=== PATIENT | male | born 1970 | race Caucasian/White ===

== ENCOUNTER 2021-11-21 10:02 | Emergency (ER) | payer OTHER ==
[2021-11-21 12:22] VITALS: BP 160/83; PULSE 74; TEMP 97.8; BMI 36.9
== END 2021-11-21 16:40 | disposition home or self-care (01) ==
LOC: JER 10:02
DX: R05.1 Acute cough (principal); R06.02 Shortness of breath; R51.9 Headache, unspecified
CPT/HCPCS: 0241U-QW; 71046-TC-FY; 99284-25

== ENCOUNTER 2022-05-14 10:53 | Inpatient (IN) | payer OTHER ==
[2022-05-14] MEDS ORDERED: morphine CARPU-JECT 4 MG/1 ML DISP.SYRIN IVPUSH ONE (15:18)
[2022-05-14] MEDS ORDERED: HYDROmorphone HCL CARPU-JECT 2 MG/1 ML DISP.SYRIN IVPUSH ONE ×2 (15:22→20:18)
[2022-05-14] MEDS ORDERED: HYDROmorphone HCl 2 MG/ML VIAL ONE ×2 (16:01→20:43)
[2022-05-14] MEDS ORDERED: ACETAMINOPHEN 1000 MG/100 ML BAG IVPB ONE (16:27)
[2022-05-14] MEDS ORDERED: ACETAMINOPHEN INJECTION 100 ML IVPB ONE (17:11)
[2022-05-14 17:30] LABS: BASO % 0.2 % (0-2.0); EOS % 0.6 % (0-4.5); HEMATOCRIT 45.4 % (35.4-49); HEMOGLOBIN 14.8 GM/dL (11.7-16.9); LYMPH % 10.3 % (8-40); MCH 26.3 pg (25.7-33.7); MCHC 32.6 g/dl (32.0-35.9); MEAN CELL VOLUME 80.8 fl (80-96); MEAN PLT VOLUME 8.6 fl (7.5-11.1); MONO % 8.3 % (3.8-10.2); NEUT % 80.6 % (42.8-82.8); PLATELET COUNT 209 10^3/uL (134-434); RBC 5.62 M/mm3 (4.00-5.60); RDW 14.3 % (11.9-15.9); WHITE BLOOD COUNT 8.7 K/mm3 (4.0-10.0)
[2022-05-14 17:41] LABS: INR 1.28 (0.83-1.09); PROTHROMBIN TIME (PATIENT) 14.8 SEC (9.7-13.0)
[2022-05-14 17:49] LABS: CALCIUM 9.2 mg/dL (8.5-10.1)
[2022-05-14 17:50] LABS: ALBUMIN 3.5 g/dl (3.4-5.0); BLOOD UREA NITROGEN 7.4 mg/dL (7-18)
[2022-05-14 17:52] LABS: CREATININE 0.7 mg/dL (0.55-1.3)
[2022-05-14 17:54] LABS: BILIRUBIN,TOTAL 0.8 mg/dL (0.2-1); TOT PROT 7.1 g/dl (6.4-8.2)
[2022-05-14] MEDS ORDERED: PIPERACILLIN/TAZOB 4.5 GM 4.5 GM in DEXTROSE 5%-WATER 100 ML IVPB ONE (20:22)
[2022-05-14] MEDS ORDERED: PIPERACILLIN/TAZOB 4.5 GM 4.5 GM/100 ML BAG IVPB ONE (20:44)
[2022-05-14] MEDS ORDERED: DOCUSATE SODIUM 100 MG CAPSULE (FP) PO PRN (21:03)
[2022-05-15] MEDS: INSULIN SLIDING SCALE (NOVOLOG) 1 VIAL SQ SCH ×5 (03:26→21:57)
[2022-05-15] MEDS ORDERED: ACETAMINOPHEN 1000 MG/100 ML BAG IVPB PRN (07:46)
[2022-05-15] MEDS ORDERED: CYCLOBENZAPRINE HCL 5 MG TABLET PO PRN (08:10)
[2022-05-15] MEDS: HYDROmorphone HCl 2 MG/ML VIAL IVPUSH PRN ×3 (08:14→17:45)
[2022-05-15] MEDS: PIPERACILLIN/TAZOB 3.375 GM 3.375 GM in DEXTROSE 5%-WATER - 50 ML IVPB SCH ×4 (08:14→21:36)
[2022-05-15 08:17] LABS: BASO % 0.4 % (0-2.0); EOS % 0.3 % (0-4.5); HEMATOCRIT 43.6 % (35.4-49); HEMOGLOBIN 14.3 GM/dL (11.7-16.9); LYMPH % 8.5 % (8-40); MCH 26.4 pg (25.7-33.7); MCHC 32.9 g/dl (32.0-35.9); MEAN CELL VOLUME 80.3 fl (80-96); MEAN PLT VOLUME 9.1 fl (7.5-11.1); MONO % 10.8 % (3.8-10.2); PLATELET COUNT 236 10^3/uL (134-434); RBC 5.43 M/mm3 (4.00-5.60); RDW 14.2 % (11.9-15.9)
[2022-05-15] MEDS ORDERED: PIPERACILLIN/TAZOB 3.375 GM 3.375 GM/50 ML BAG IVPB ONE ×3 (08:17→21:21)
[2022-05-15] MEDS ORDERED: HYDROmorphone HCl 2 MG/ML VIAL ONE ×2 (08:17→17:46)
[2022-05-15 08:29] LABS: CALCIUM 9.1 mg/dL (8.5-10.1)
[2022-05-15 08:30] LABS: BLOOD UREA NITROGEN 10.5 mg/dL (7-18); MAGNESIUM 1.9 mg/dL (1.8-2.4)
[2022-05-15] MEDS ORDERED: VALSARTAN 80 MG TABLET ONE (08:30)
[2022-05-15 08:34] LABS: CREATININE 0.9 mg/dL (0.55-1.3); PHOSPHOROUS 2.4 mg/dL (2.5-4.9)
[2022-05-15] MEDS: VALSARTAN 80 MG TABLET PO SCH (09:02)
[2022-05-15] MEDS ORDERED: ACETAMINOPHEN 325 MG TABLET (FP) PO PRN (13:50)
[2022-05-15] MEDS ORDERED: INSULIN (NOVOLOG) ASPART 100 UNITS/ML 10ML VIAL ONE (21:22)
[2022-05-15] MEDS ORDERED: ATORVASTATIN CA 20 MG TABLET (FP) ONE (21:22)
[2022-05-15] MEDS ORDERED: ACETAMINOPHEN INJECTION 100 ML IVPB ONE (21:31)
[2022-05-15] MEDS: ATORVASTATIN CA 20 MG TABLET (FP) PO SCH (21:59)
[2022-05-16] MEDS: PIPERACILLIN/TAZOB 3.375 GM 3.375 GM in DEXTROSE 5%-WATER - 50 ML IVPB SCH ×4 (05:24→21:19)
[2022-05-16] MEDS ORDERED: PIPERACILLIN/TAZOB 3.375 GM 3.375 GM/50 ML BAG IVPB ONE ×3 (05:27→21:04)
[2022-05-16] MEDS ORDERED: ACETAMINOPHEN 325 MG TABLET (FP) ONE ×3 (06:54→16:48)
[2022-05-16 08:46] LABS: HEMATOCRIT 40.1 % (35.4-49); HEMOGLOBIN 13.1 GM/dL (11.7-16.9); MCH 26.4 pg (25.7-33.7); MCHC 32.7 g/dl (32.0-35.9); MEAN CELL VOLUME 80.6 fl (80-96); MEAN PLT VOLUME 8.5 fl (7.5-11.1); PLATELET COUNT 212 10^3/uL (134-434); RBC 4.98 M/mm3 (4.00-5.60); RDW 14.2 % (11.9-15.9); WHITE BLOOD COUNT 8.7 K/mm3 (4.0-10.0)
[2022-05-16 09:07] LABS: ALBUMIN 2.8 g/dl (3.4-5.0); BLOOD UREA NITROGEN 13.1 mg/dL (7-18); CALCIUM 8.5 mg/dL (8.5-10.1)
[2022-05-16 09:10] LABS: CREATININE 0.9 mg/dL (0.55-1.3)
[2022-05-16 09:12] LABS: BILIRUBIN,TOTAL 0.7 mg/dL (0.2-1); TOT PROT 6.4 g/dl (6.4-8.2)
[2022-05-16] MEDS: INSULIN SLIDING SCALE (NOVOLOG) 1 VIAL SQ SCH ×4 (10:15→22:11)
[2022-05-16] MEDS ORDERED: VALSARTAN 80 MG TABLET ONE (10:16)
[2022-05-16] MEDS: VALSARTAN 80 MG TABLET PO SCH (10:26)
[2022-05-16] MEDS ORDERED: BACLOFEN 10 MG TABLET (FP) ONE (10:29)
[2022-05-16] MEDS ORDERED: HYDROmorphone HCl 2 MG/ML VIAL ONE ×3 (12:51→21:03)
[2022-05-16] MEDS: HYDROmorphone HCl 2 MG/ML VIAL IVPUSH PRN ×3 (12:55→21:19)
[2022-05-16 17:24] LABS: URINE APPEARANCE CLEAR; URINE BILIRUBIN NEGATIVE (NEGATIVE); URINE COLOR YELLOW; URINE GLUCOSE (UA) 3+ (NEGATIVE); URINE KETONE TRACE (NEGATIVE); URINE LEUK ESTERASE NEGATIVE (NEGATIVE); URINE NITRITE NEGATIVE (NEGATIVE); URINE PROTEIN TRACE (NEGATIVE)
[2022-05-16] MEDS ORDERED: ATORVASTATIN CA 20 MG TABLET (FP) ONE (22:06)
[2022-05-16] MEDS: ATORVASTATIN CA 20 MG TABLET (FP) PO SCH (22:11)
[2022-05-17] MEDS: PIPERACILLIN/TAZOB 3.375 GM 3.375 GM in DEXTROSE 5%-WATER - 50 ML IVPB SCH ×4 (02:08→22:53)
[2022-05-17] MEDS: HYDROmorphone HCl 2 MG/ML VIAL IVPUSH PRN ×5 (02:09→21:58)
[2022-05-17 05:59] VITALS: BMI 37.0
[2022-05-17] MEDS: INSULIN SLIDING SCALE (NOVOLOG) 1 VIAL SQ SCH ×4 (07:20→23:32)
[2022-05-17] MEDS: VALSARTAN 80 MG TABLET PO SCH (10:00)
[2022-05-17] MEDS: SODIUM CHLORIDE 1,000 ML IV SCH (10:50)
[2022-05-17] MEDS ORDERED: FLU VACC QS2022-23(6MOS UP)/PF 60 MCG/0.5 ML SYRINGE IM ONE (15:00)
[2022-05-17] MEDS: ATORVASTATIN CA 20 MG TABLET (FP) PO SCH (23:50)
[2022-05-18] MEDS: SODIUM CHLORIDE 1,000 ML IV SCH ×2 (02:09→11:32)
[2022-05-18] MEDS: PIPERACILLIN/TAZOB 3.375 GM 3.375 GM in DEXTROSE 5%-WATER - 50 ML IVPB SCH ×4 (02:09→22:32)
[2022-05-18] MEDS: HYDROmorphone HCl 2 MG/ML VIAL IVPB PRN ×5 (03:14→20:57)
[2022-05-18] MEDS: INSULIN (LEVEMIR) 100 UNITS/ML UNITS SQ SCH (06:48)
[2022-05-18] MEDS: INSULIN SLIDING SCALE (NOVOLOG) 1 VIAL SQ SCH ×4 (06:49→22:35)
[2022-05-18] MEDS ORDERED: INSULIN SLIDING SCALE (NOVOLOG) 1 VIAL SQ SCH (07:00)
[2022-05-18] MEDS: VALSARTAN 80 MG TABLET PO SCH (09:51)
[2022-05-18 10:36] LABS: CALCIUM 8.5 mg/dL (8.5-10.1)
[2022-05-18 10:37] LABS: ALBUMIN 2.6 g/dl (3.4-5.0); BLOOD UREA NITROGEN 9.5 mg/dL (7-18)
[2022-05-18 10:40] LABS: CREATININE 0.7 mg/dL (0.55-1.3)
[2022-05-18 10:41] LABS: BILIRUBIN,TOTAL 0.5 mg/dL (0.2-1)
[2022-05-18] MEDS ORDERED: INSULIN (NOVOLOG) ASPART 100 UNITS/ML 10ML VIAL ONE (10:59)
[2022-05-18] MEDS ORDERED: ONDANSETRON *ODT* 4 MG TABLET SL PRN (11:16)
[2022-05-18] MEDS: ATORVASTATIN CA 20 MG TABLET (FP) PO SCH (22:32)
[2022-05-18] MEDS: oxyCODONE HCL 20 MG SUSTAINED ACTING TABLET PO SCH (22:32)
[2022-05-19] MEDS: PIPERACILLIN/TAZOB 3.375 GM 3.375 GM in DEXTROSE 5%-WATER - 50 ML IVPB SCH ×4 (02:54→22:02)
[2022-05-19] MEDS: SODIUM CHLORIDE 1,000 ML IV SCH ×3 (06:06→21:59)
[2022-05-19] MEDS: INSULIN (LEVEMIR) 100 UNITS/ML UNITS SQ SCH (06:07)
[2022-05-19] MEDS: INSULIN SLIDING SCALE (NOVOLOG) 1 VIAL SQ SCH ×4 (06:07→22:02)
[2022-05-19] MEDS: oxyCODONE HCL 20 MG SUSTAINED ACTING TABLET PO SCH ×2 (09:00→22:01)
[2022-05-19] MEDS: VALSARTAN 80 MG TABLET PO SCH (09:01)
[2022-05-19] MEDS: CHOLECALCIFEROL (VIT D3) 1,000 UNIT (25 MCG) TABLET PO SCH (09:19)
[2022-05-19] MEDS: SERTRALINE HCL 50 MG TABLET (FP) PO SCH (09:19)
[2022-05-19 09:54] LABS: HEMATOCRIT 36.8 % (35.4-49); HEMOGLOBIN 12.3 GM/dL (11.7-16.9); MCH 26.7 pg (25.7-33.7); MCHC 33.5 g/dl (32.0-35.9); MEAN CELL VOLUME 79.7 fl (80-96); MEAN PLT VOLUME 7.8 fl (7.5-11.1); PLATELET COUNT 231 10^3/uL (134-434); RBC 4.62 M/mm3 (4.00-5.60); RDW 14.3 % (11.9-15.9); WHITE BLOOD COUNT 7.1 K/mm3 (4.0-10.0)
[2022-05-19] MEDS ORDERED: POLYETHYLENE GLYCOL (HEALTHYLAX) 3350 17 GM PACKET PO SCH (10:00)
[2022-05-19 10:17] LABS: CALCIUM 8.5 mg/dL (8.5-10.1)
[2022-05-19 10:18] LABS: ALBUMIN 2.4 g/dl (3.4-5.0); MAGNESIUM 2.2 mg/dL (1.8-2.4)
[2022-05-19 10:21] LABS: CREATININE 0.6 mg/dL (0.55-1.3)
[2022-05-19 10:23] LABS: BILIRUBIN,TOTAL 0.4 mg/dL (0.2-1); TOT PROT 6.1 g/dl (6.4-8.2)
[2022-05-19] MEDS: HYDROmorphone HCl 2 MG/ML VIAL IVPB PRN ×3 (11:58→22:00)
[2022-05-19] MEDS ORDERED: PHYTONADIONE 10 MG/1 ML AMP IVPB ONE (13:30)
[2022-05-19] MEDS: ATORVASTATIN CA 20 MG TABLET (FP) PO SCH (22:02)
[2022-05-20] MEDS: PIPERACILLIN/TAZOB 3.375 GM 3.375 GM in DEXTROSE 5%-WATER - 50 ML IVPB SCH ×4 (02:56→21:52)
[2022-05-20] MEDS: HYDROmorphone HCl 2 MG/ML VIAL IVPB PRN ×3 (06:32→21:51)
[2022-05-20] MEDS: INSULIN SLIDING SCALE (NOVOLOG) 1 VIAL SQ SCH ×4 (06:33→21:59)
[2022-05-20] MEDS: INSULIN (LEVEMIR) 100 UNITS/ML UNITS SQ SCH ×2 (06:33→21:59)
[2022-05-20 09:26] LABS: BASO % 0.4 % (0-2.0); EOS % 1.7 % (0-4.5); HEMATOCRIT 35.7 % (35.4-49); HEMOGLOBIN 11.8 GM/dL (11.7-16.9); LYMPH % 12.9 % (8-40); MCH 26.6 pg (25.7-33.7); MCHC 33.1 g/dl (32.0-35.9); MEAN CELL VOLUME 80.2 fl (80-96); MEAN PLT VOLUME 7.8 fl (7.5-11.1); MONO % 11.1 % (3.8-10.2); NEUT % 73.9 % (42.8-82.8); PLATELET COUNT 239 10^3/uL (134-434); RBC 4.45 M/mm3 (4.00-5.60); RETICULOCYTES 1.54 % (0.5-1.5); WHITE BLOOD COUNT 6.4 K/mm3 (4.0-10.0)
[2022-05-20 09:32] LABS: INR 1.28 (0.83-1.09); PROTHROMBIN TIME (PATIENT) 14.8 SEC (9.7-13.0)
[2022-05-20 09:41] LABS: CALCIUM 8.5 mg/dL (8.5-10.1)
[2022-05-20 09:43] LABS: CREATININE 0.7 mg/dL (0.55-1.3)
[2022-05-20] MEDS: oxyCODONE HCL 20 MG SUSTAINED ACTING TABLET PO SCH ×2 (10:15→21:50)
[2022-05-20] MEDS: SERTRALINE HCL 50 MG TABLET (FP) PO SCH (10:15)
[2022-05-20] MEDS: CHOLECALCIFEROL (VIT D3) 1,000 UNIT (25 MCG) TABLET PO SCH (10:15)
[2022-05-20] MEDS: VALSARTAN 80 MG TABLET PO SCH (10:15)
[2022-05-20] MEDS: PANTOPRAZOLE 40 MG TABLET PO SCH (10:15)
[2022-05-20] MEDS: POLYETHYLENE GLYCOL (HEALTHYLAX) 3350 17 GM PACKET PO SCH ×2 (10:18→21:52)
[2022-05-20] MEDS: SODIUM CHLORIDE 1,000 ML IV SCH (11:51)
[2022-05-20] MEDS ORDERED: IRON SUCROSE INJECTION 200 MG in SODIUM CHLORIDE 90 ML IVPB ONE (19:00)
[2022-05-20 19:22] LABS: INR 1.26 (0.83-1.09); PROTHROMBIN TIME (PATIENT) 14.5 SEC (9.7-13.0)
[2022-05-20] MEDS ORDERED: INSULIN (NOVOLOG) ASPART 100 UNITS/ML 10ML VIAL ONE (21:47)
[2022-05-20] MEDS: ATORVASTATIN CA 20 MG TABLET (FP) PO SCH (21:50)
[2022-05-21] MEDS: PIPERACILLIN/TAZOB 3.375 GM 3.375 GM in DEXTROSE 5%-WATER - 50 ML IVPB SCH ×4 (02:53→22:43)
[2022-05-21] MEDS: INSULIN SLIDING SCALE (NOVOLOG) 1 VIAL SQ SCH ×4 (06:08→22:59)
[2022-05-21] MEDS: HYDROmorphone HCl 2 MG/ML VIAL IVPB PRN ×3 (06:08→18:55)
[2022-05-21] MEDS: INSULIN (LEVEMIR) 100 UNITS/ML UNITS SQ SCH ×2 (06:09→22:59)
[2022-05-21 09:48] LABS: BASO % 0.6 % (0-2.0); EOS % 1.9 % (0-4.5); HEMATOCRIT 35.5 % (35.4-49); HEMOGLOBIN 11.9 GM/dL (11.7-16.9); LYMPH % 14.5 % (8-40); MCH 26.6 pg (25.7-33.7); MCHC 33.4 g/dl (32.0-35.9); MEAN CELL VOLUME 79.5 fl (80-96); MEAN PLT VOLUME 8.2 fl (7.5-11.1); MONO % 11.6 % (3.8-10.2); NEUT % 71.4 % (42.8-82.8); PLATELET COUNT 276 10^3/uL (134-434); RBC 4.46 M/mm3 (4.00-5.60); RDW 14.2 % (11.9-15.9); WHITE BLOOD COUNT 5.9 K/mm3 (4.0-10.0)
[2022-05-21 10:15] LABS: ALBUMIN 2.3 g/dl (3.4-5.0); CALCIUM 8.6 mg/dL (8.5-10.1)
[2022-05-21 10:19] LABS: CREATININE 0.6 mg/dL (0.55-1.3)
[2022-05-21 10:21] LABS: BILIRUBIN,TOTAL 0.3 mg/dL (0.2-1)
[2022-05-21 10:22] LABS: BLOOD UREA NITROGEN 6.6 mg/dL (7-18)
[2022-05-21] MEDS: oxyCODONE HCL 20 MG SUSTAINED ACTING TABLET PO SCH ×2 (10:32→22:44)
[2022-05-21] MEDS: HEPARIN NA (PORCINE) 5,000 UNITS/ML 1ML VIAL SQ SCH ×2 (10:32→22:44)
[2022-05-21] MEDS: CHOLECALCIFEROL (VIT D3) 1,000 UNIT (25 MCG) TABLET PO SCH (10:33)
[2022-05-21] MEDS: PANTOPRAZOLE 40 MG TABLET PO SCH (10:33)
[2022-05-21] MEDS: POLYETHYLENE GLYCOL (HEALTHYLAX) 3350 17 GM PACKET PO SCH ×2 (10:33→22:59)
[2022-05-21] MEDS: SERTRALINE HCL 50 MG TABLET (FP) PO SCH (10:33)
[2022-05-21] MEDS: VALSARTAN 80 MG TABLET PO SCH (10:34)
[2022-05-21] MEDS: SODIUM CHLORIDE 1,000 ML IV SCH (11:45)
[2022-05-21] MEDS: ATORVASTATIN CA 20 MG TABLET (FP) PO SCH (22:44)
[2022-05-22] MEDS: HYDROmorphone HCl 2 MG/ML VIAL IVPB PRN ×2 (01:09→12:15)
[2022-05-22] MEDS: PIPERACILLIN/TAZOB 3.375 GM 3.375 GM in DEXTROSE 5%-WATER - 50 ML IVPB SCH ×4 (04:46→21:28)
[2022-05-22] MEDS: INSULIN SLIDING SCALE (NOVOLOG) 1 VIAL SQ SCH ×4 (06:19→21:37)
[2022-05-22] MEDS: INSULIN (LEVEMIR) 100 UNITS/ML UNITS SQ SCH ×2 (06:19→21:36)
[2022-05-22] MEDS ORDERED: INSULIN (NOVOLOG) ASPART 100 UNITS/ML 10ML VIAL ONE (06:26)
[2022-05-22] MEDS ORDERED: INSULIN (LEVEMIR) 100 UNITS/ML UNITS SQ ONE (06:26)
[2022-05-22] MEDS: VALSARTAN 80 MG TABLET PO SCH (09:34)
[2022-05-22] MEDS: oxyCODONE HCL 20 MG SUSTAINED ACTING TABLET PO SCH ×2 (09:35→21:29)
[2022-05-22] MEDS: CHOLECALCIFEROL (VIT D3) 1,000 UNIT (25 MCG) TABLET PO SCH (09:36)
[2022-05-22] MEDS: SERTRALINE HCL 50 MG TABLET (FP) PO SCH (09:36)
[2022-05-22] MEDS: PANTOPRAZOLE 40 MG TABLET PO SCH (09:36)
[2022-05-22 12:40] LABS: BF WBC & OTHER NUCLEATED CELLS 2575 /mm3
[2022-05-22] MEDS: POLYETHYLENE GLYCOL (HEALTHYLAX) 3350 17 GM PACKET PO SCH ×2 (13:21→21:28)
[2022-05-22] MEDS: SODIUM CHLORIDE 1,000 ML IV SCH (13:22)
[2022-05-22 13:26] LABS: BODY FLUID MACROPHAGES 5 %; BODY FLUID MONOCYTE 6 %
[2022-05-22 21:10] LABS: ANTIGLOMERULAR BASEMENT MEN.AB <0.2 units (0.0-0.9); ATYPICAL pANCA <1:20 titer (Neg:<1:20); C-ANCA <1:20 titer (Neg:<1:20)
[2022-05-22] MEDS: ATORVASTATIN CA 20 MG TABLET (FP) PO SCH (21:28)
[2022-05-23] MEDS: PIPERACILLIN/TAZOB 3.375 GM 3.375 GM in DEXTROSE 5%-WATER - 50 ML IVPB SCH ×4 (02:50→21:38)
[2022-05-23] MEDS: SODIUM CHLORIDE 1,000 ML IV SCH ×3 (04:49→18:29)
[2022-05-23] MEDS: INSULIN (LEVEMIR) 100 UNITS/ML UNITS SQ SCH ×2 (06:37→21:41)
[2022-05-23] MEDS: INSULIN SLIDING SCALE (NOVOLOG) 1 VIAL SQ SCH ×4 (06:37→21:41)
[2022-05-23] MEDS: HYDROmorphone HCl 2 MG/ML VIAL IVPB PRN ×2 (06:47→21:40)
[2022-05-23] MEDS: HEPARIN NA (PORCINE) 5,000 UNITS/ML 1ML VIAL SQ SCH ×2 (10:37→21:39)
[2022-05-23] MEDS: PANTOPRAZOLE 40 MG TABLET PO SCH (10:38)
[2022-05-23] MEDS: SERTRALINE HCL 50 MG TABLET (FP) PO SCH (10:38)
[2022-05-23] MEDS: VALSARTAN 80 MG TABLET PO SCH (10:38)
[2022-05-23] MEDS: oxyCODONE HCL 20 MG SUSTAINED ACTING TABLET PO SCH ×2 (10:38→21:39)
[2022-05-23] MEDS: CHOLECALCIFEROL (VIT D3) 1,000 UNIT (25 MCG) TABLET PO SCH (10:39)
[2022-05-23] MEDS: POLYETHYLENE GLYCOL (HEALTHYLAX) 3350 17 GM PACKET PO SCH ×2 (10:43→21:38)
[2022-05-23] MEDS: ATORVASTATIN CA 20 MG TABLET (FP) PO SCH (21:38)
[2022-05-24] MEDS: PIPERACILLIN/TAZOB 3.375 GM 3.375 GM in DEXTROSE 5%-WATER - 50 ML IVPB SCH ×2 (03:42→10:51)
[2022-05-24] MEDS: SODIUM CHLORIDE 1,000 ML IV SCH ×2 (06:24→10:57)
[2022-05-24] MEDS: INSULIN SLIDING SCALE (NOVOLOG) 1 VIAL SQ SCH ×4 (06:25→23:13)
[2022-05-24] MEDS: HYDROmorphone HCl 2 MG/ML VIAL IVPB PRN ×2 (06:25→23:14)
[2022-05-24] MEDS: INSULIN (LEVEMIR) 100 UNITS/ML UNITS SQ SCH ×2 (06:25→23:13)
[2022-05-24] MEDS: oxyCODONE HCL 20 MG SUSTAINED ACTING TABLET PO SCH ×2 (10:54→23:12)
[2022-05-24] MEDS: VALSARTAN 80 MG TABLET PO SCH (10:54)
[2022-05-24] MEDS: CHOLECALCIFEROL (VIT D3) 1,000 UNIT (25 MCG) TABLET PO SCH (10:57)
[2022-05-24] MEDS: SERTRALINE HCL 50 MG TABLET (FP) PO SCH (10:57)
[2022-05-24] MEDS: PANTOPRAZOLE 40 MG TABLET PO SCH (10:57)
[2022-05-24] MEDS: HEPARIN NA (PORCINE) 5,000 UNITS/ML 1ML VIAL SQ SCH ×2 (10:58→23:12)
[2022-05-24] MEDS: POLYETHYLENE GLYCOL (HEALTHYLAX) 3350 17 GM PACKET PO SCH ×2 (10:58→23:12)
[2022-05-24 17:21] LABS: BODY FLUID ALBUMIN 2.3 g/dL (Not Estab.)
[2022-05-24] MEDS: ATORVASTATIN CA 20 MG TABLET (FP) PO SCH (23:13)
[2022-05-25] MEDS: INSULIN (LEVEMIR) 100 UNITS/ML UNITS SQ SCH (06:58)
[2022-05-25] MEDS: INSULIN SLIDING SCALE (NOVOLOG) 1 VIAL SQ SCH ×2 (06:58→11:59)
[2022-05-25 08:27] VITALS: BP 156/77; PULSE 80; RESP 19; TEMP 98.7
[2022-05-25] MEDS: VALSARTAN 80 MG TABLET PO SCH (09:56)
[2022-05-25] MEDS: HEPARIN NA (PORCINE) 5,000 UNITS/ML 1ML VIAL SQ SCH (09:56)
[2022-05-25] MEDS: POLYETHYLENE GLYCOL (HEALTHYLAX) 3350 17 GM PACKET PO SCH (09:56)
[2022-05-25] MEDS: oxyCODONE HCL 20 MG SUSTAINED ACTING TABLET PO SCH (09:56)
[2022-05-25] MEDS: SERTRALINE HCL 50 MG TABLET (FP) PO SCH (09:58)
[2022-05-25] MEDS: PANTOPRAZOLE 40 MG TABLET PO SCH (09:58)
[2022-05-25] MEDS: CHOLECALCIFEROL (VIT D3) 1,000 UNIT (25 MCG) TABLET PO SCH (09:58)
[2022-05-25] MEDS: SODIUM CHLORIDE 1,000 ML IV SCH (10:00)
[2022-05-25] MEDS ORDERED: INSULIN (NOVOLOG) ASPART 100 UNITS/ML 10ML VIAL ONE (11:57)
== END 2022-05-25 14:46 | disposition home or self-care (01) | DRG 139 ==
LOC: JER 10:53 → JERBED 21:03 → J7W 05-16 22:45
PROVIDERS: ADMIT Internal Medicine; ATTEND Family Medicine
PROC: 0W993ZX Drainage of Right Pleural Cavity, Percutaneous Approach, Diagnostic (ICD-10-PCS; principal; 2022-05-22)
DX: J18.9 Pneumonia, unspecified organism (principal); J90 Pleural effusion, not elsewhere classified; I10 Essential (primary) hypertension; E78.5 Hyperlipidemia, unspecified; R91.8 Other nonspecific abnormal finding of lung field; E11.65 Type 2 diabetes mellitus with hyperglycemia; M50.30 Other cervical disc degeneration, unspecified cervical region; M51.34 Other intervertebral disc degeneration, thoracic region; Z86.73 Personal history of transient ischemic attack (TIA), and cerebral infarction without residual deficits
CPT/HCPCS: 0241U-QW; 36415; 70450-TC; 71045-TC-FY; 71250-TC; 71275-TC; 74177-TC; 76705-TC; 76775-TC; 76942; 80048; 80053; 81003; 82042; 82105; 82150; 82378; 82465; 82728; 82784; 82945; 82962; 83036; 83516; 83520; 83540; 83550; 83605; 83690; 83735; 84100; 84155; 84157; 84165; 84478; 84484; 85025; 85027; 85045; 85610; 85730; 86038; 86256; 86301; 86334; 86480; 86850; 86900; 86901; 87040; 87070; 87075; 87102; 87116; 87205; 87206; 87210; 88108; 88305-TC; 93005; 93010; 97116-GP; 97161-GP; 99282-25; 99285-25; G0008; J1644; J1756; Q2036; Q9967

== ENCOUNTER 2023-05-01 06:35 | Emergency (ER) | payer OTHER ==
[2023-05-01 06:49] VITALS: RESP 18; TEMP 98.3; BMI 36.9
[2023-05-01 08:19] LABS: EPI CELLS 8 /uL (0-25.1); HYALINE CASTS 2 /uL (0-3.1); PH,URINE 5.5 (5.0-8.0); URINE APPEARANCE CLEAR; URINE BACTERIA 1 /uL (0-1359); URINE BILIRUBIN NEGATIVE (NEGATIVE); URINE COLOR YELLOW; URINE GLUCOSE (UA) 3+ (NEGATIVE); URINE KETONE TRACE (NEGATIVE); URINE LEUK ESTERASE NEGATIVE (NEGATIVE); URINE NITRITE NEGATIVE (NEGATIVE); URINE PROTEIN 1+ (NEGATIVE); URINE RBC 8 /uL (0-23.9); URINE UROBILINOGEN 0.2 mg/dL (0.2-1.0); URINE WBC 8 /uL (0-25.8)
[2023-05-01] MEDS ORDERED: ACETAMINOPHEN 1000 MG/100 ML BAG IVPB ONE (08:41)
[2023-05-01 08:45] LABS: BASO % 0.6 % (0-2.0); EOS % 1.8 % (0-4.5); HEMATOCRIT 43.3 % (35.4-49); HEMOGLOBIN 14.1 GM/dL (11.7-16.9); LYMPH % 25.6 % (8-40); MCH 26.3 pg (25.7-33.7); MCHC 32.7 g/dl (32.0-35.9); MEAN CELL VOLUME 80.4 fl (80-96); MEAN PLT VOLUME 8.4 fl (7.5-11.1); MONO % 6.8 % (3.8-10.2); NEUT % 65.2 % (42.8-82.8); PLATELET COUNT 154 10^3/uL (134-434); RBC 5.38 M/mm3 (4.00-5.60); WHITE BLOOD COUNT 7.2 K/mm3 (4.0-10.0)
[2023-05-01 08:51] LABS: INR 1.03 (0.83-1.09)
[2023-05-01 08:53] LABS: ACTIVATED PTT 32.4 SECONDS (25.2-36.5)
[2023-05-01 09:01] LABS: POTASSIUM 4.5 mmol/L (3.5-5.1)
[2023-05-01 09:04] LABS: CALCIUM 9.4 mg/dL (8.5-10.1)
[2023-05-01 09:05] LABS: ALBUMIN 3.6 g/dl (3.4-5.0); BLOOD UREA NITROGEN 11.1 mg/dL (7-18)
[2023-05-01 09:08] LABS: CREATININE 0.9 mg/dL (0.55-1.3)
[2023-05-01 09:09] LABS: BILIRUBIN,TOTAL 0.3 mg/dL (0.2-1); TOT PROT 6.9 g/dl (6.4-8.2)
[2023-05-01 09:13] LABS: N-TERMINAL BNP 17.4 pg/ml (5-125)
[2023-05-01] MEDS ORDERED: ACETAMINOPHEN INJECTION 100 ML IVPB ONE (09:59)
[2023-05-01 12:38] VITALS: BP 138/77; PULSE 76
== END 2023-05-01 12:38 | disposition home or self-care (01) ==
LOC: JER 06:35
PROC: 3E033NZ Introduction of Analgesics, Hypnotics, Sedatives into Peripheral Vein, Percutaneous Approach (ICD-10-PCS; principal; 2023-05-01)
DX: M54.6 Pain in thoracic spine (principal); R05.9 Cough, unspecified; R07.81 Pleurodynia; R10.9 Unspecified abdominal pain; J90 Pleural effusion, not elsewhere classified; Z20.822 Contact with and (suspected) exposure to COVID-19
CPT/HCPCS: 0241U-QW; 36415; 71046-TC-FY; 71250-TC; 74176-TC; 80053; 81003; 83880; 84484; 85025; 85610; 85730; 93005; 93010; 99285-25